=== PATIENT | female | born 1970 | race African-American/Black ===

== ENCOUNTER 2019-06-19 00:24 | Emergency (ER) | payer OTHER ==
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
== END 2019-06-19 00:57 | disposition home or self-care (01) ==
LOC: ER 00:24
DX: S20.01XA Contusion of right breast, initial encounter (principal); N63.10 Unspecified lump in the right breast, unspecified quadrant; F10.129 Alcohol abuse with intoxication, unspecified; Z88.0 Allergy status to penicillin; Y90.9 Presence of alcohol in blood, level not specified; W50.0XXA Accidental hit or strike by another person, initial encounter; Y93.89 Activity, other specified; Y92.89 Other specified places as the place of occurrence of the external cause; Y99.8 Other external cause status
CPT/HCPCS: 99281